=== PATIENT | female | born 1975 | race Hispanic/Latino ===

== ENCOUNTER → 2020-07-03 | Outpatient (CLI) | payer OTHER | LOC: MAMMO 09:59 | PROVIDERS: ATTEND Internal Medicine | DX: Z12.31 Encounter for screening mammogram for malignant neoplasm of breast (principal) | CPT/HCPCS: 77067 ==

== ENCOUNTER → 2020-08-01 | Outpatient (CLI) | payer OTHER ==
--- NOTE | 2020-08-02 09:20 | Diagnostic Imaging Report ---
#[id number] - USBRELIMLT ULTRASOUND OF THE LEFT BREAST : 08/01/2020 Comparison is made to exams dated: 08/01/2020 mammogram and 07/03/2020 mammogram - [facility]. Real-time and Doppler ultrasound were performed on the left breast. Hill scale images of the real-time examination were reviewed. There is a 1.1 cm irregular mass with an angular margin in the left breast at 7 o'clock 4 cm from the nipple. This irregular mass displays posterior acoustic shadowing. This correlates with mammography findings. IMPRESSION: SUSPICIOUS OF MALIGNANCY - FOLLOW-UP RECOMMENDED The 1.1 cm irregular mass in the left breast is at a moderate suspicion for malignancy. A biopsy is recommended. The patient has been contacted at the time of the exam. Jimmy Negron vs/:08/01/2020 10:28:09 E Commerce Analyst: ALIREZA SCHULZ [facility], [facility] letter sent: Biopsy Required Ultrasound BI-RADS: 4c Suspicious abnormality - moderate concern but not classic for malignancy
--- NOTE | 2020-08-02 09:20 | Diagnostic Imaging Report ---
#[id number] - MGDXLT #UNILATERAL LEFT DIGITAL DIAGNOSTIC MAMMOGRAM WITH CAD: 08/01/2020 Comparison is made to exam dated: 07/03/2020 mammogram - [facility]. The tissue of the left breast is heterogeneously dense. This may lower the sensitivity of mammography. Current study was also evaluated with a Computer Aided Detection (CAD) system. There is a 1.2 cm oval mass with a circumscribed margin in the left breast at 7 o'clock middle depth. No other significant masses or calcifications are seen in the breast. IMPRESSION: INCOMPLETE: NEEDS ADDITIONAL IMAGING EVALUATION The 1.2 cm oval mass in the left breast is indeterminate. An ultrasound is recommended and will be immediately performed. Jimmy Negron vs/:08/01/2020 09:20:53 Remote Sensing Advisor: Martha Sevilla RT(R)(M), [facility] Mammogram BI-RADS: 0 Indeterminate
== END ==
LOC: MAMMO 07:55
PROVIDERS: ATTEND Internal Medicine
DX: N63.20 Unspecified lump in the left breast, unspecified quadrant (principal)

== ENCOUNTER → 2020-08-11 | Outpatient (CLI) | payer OTHER ==
--- NOTE | 2020-08-14 08:20 | Diagnostic Imaging Report ---
#[id number] - MGDXLT #UNILATERAL LEFT DIGITAL DIAGNOSTIC MAMMOGRAM POST-PROCEDURE IMAGING FOR MARKER PLACEMENT: 08/11/2020 Comparison is made to exams dated: 08/11/2020 ultrasound biopsy, 08/01/2020 mammogram and 07/03/2020 mammogram - [facility]. Current study contains 2 films. The tissue of the left breast is heterogeneously dense. This may lower the sensitivity of mammography. A clip is noted in the left breast at the area of biopsy. IMPRESSION: POST PROCEDURE MAMMOGRAM FOR MARKER PLACEMENT CHITRA GODDARD M.D. ct/penrad:08/11/2020 15:30:50 Diesel Powerplant Mechanic Helper: Martha MCDOWELL(R)(M), [facility] Mammogram BI-RADS: Post-procedure mammogram for marker placement
--- NOTE | 2020-08-14 08:20 | Diagnostic Imaging Report ---
#[id number] - [id number] ULTRASOUND GUIDED BIOPSY LEFT BREAST WITH MARKING DEVICE INSERTED: 08/11/2020 PATIENT CONSENT: According to [facility] requirements, a time out was performed, correct site was localized and the patient was consented. Correlation is made to exams dated: 08/01/2020 ultrasound, 08/01/2020 mammogram and 07/03/2020 mammogram - [facility]. An ultrasound guided biopsy using real-time ultrasound was performed for the 1.3 cm irregular shaped mass located in the left breast at 7 o'clock middle depth. This was described on the previous mammography and ultrasound reports. The skin was prepped in the usual manner. Local anesthetic was administered to the access site. A small incision was made in the breast. A 14 gauge biopsy needle was placed adjacent to the abnormality under ultrasound guidance. Once the needle was documented to be in the correct location, six specimens were obtained using an Achieve automated firing device. A clip was inserted at the biopsy site. Post procedure imaging demonstrates the clip at the targeted area. The specimens were sent to the laboratory for pathological analysis. IMPRESSION: ULTRASOUND GUIDED BIOPSY Ultrasound guided biopsy of the 1.3 cm mass in the left breast at 7 o'clock middle depth was successful. Waiting for pathology results. A final report will be issued when these become available. CHITRA GODDARD M.D. ct/:08/11/2020 15:29:17 Minister Helper: ALIREZA SCHULZ [facility], [facility] [id number]
== END ==
LOC: US 12:44
PROVIDERS: ATTEND Internal Medicine
DX: N63.20 Unspecified lump in the left breast, unspecified quadrant (principal)
CPT/HCPCS: 19083; 77065; 88305; 88342; A4648